=== PATIENT | male | born 1965 | race Caucasian/White ===

== ENCOUNTER 2017-04-07 11:41 | Inpatient (IN) | payer MEDICAID ==
[~2017-04-07] VITALS: Ht 167.6 cm; Wt 71.2 kg
[2017-04-07 11:41] VITALS: BP_SYST 139
[2017-04-07] MEDS ORDERED: DIPHENHYDRAMINE INJ 50 MG/ML VIAL IVP ONE (12:15)
[2017-04-07] MEDS ORDERED: ASPIRIN 81 MG TAB.CHEW PO ONE (12:15)
[2017-04-07] MEDS ORDERED: ONDANSETRON HCL 4 MG/2 ML VIAL IVP ONE (12:15)
[2017-04-07 12:47] LABS: BASOPHILS # (AUTO) 0.1 K/uL (0.0-0.2); BASOPHILS % (AUTO) 0.9 % (0.0-2.0); EOSINOPHILS # (AUTO) 0.2 K/uL (0.0-0.4); EOSINOPHILS % (AUTO) 2.5 % (0.0-4.0); HEMATOCRIT 46.3 % (36-54); LYMPHOCYTES # (AUTO) 2.3 K/uL (1.0-5.5); LYMPHOCYTES % (AUTO) 25.3 % (20.5-51.5); MEAN CORPUSCULAR HEMOGLOBIN 27 pg (27-31); MEAN CORPUSCULAR HGB CONC 32 % (32-36); MEAN CORPUSCULAR VOLUME 85 fL (79.0-98.0); MONOCYTES # (AUTO) 0.8 K/uL (0.0-1.0); MONOCYTES % (AUTO) 8.4 % (1.7-9.3); NEUTROPHILS # (AUTO) 5.7 K/uL (1.8-7.7); NEUTROPHILS % (AUTO) 62.9 % (40.0-70.0); PLATELET COUNT (AUTO) 344 K/uL (130-430); RED BLOOD CELL COUNT(AUTO) 5.46 MIL/uL (4.2-6.2); WHITE BLOOD COUNT (AUTO) 9.1 K/uL (4.8-10.8)
[2017-04-07 13:08] LABS: PROTHROMBIN TIME 10.5 SECS (9.5-12.5)
[2017-04-07 13:22] LABS: CHLORIDE 104 mmol/L (98-107); POTASSIUM 4.3 mmol/L (3.5-5.1); SODIUM SERUM 139 mmol/L (136-145)
[2017-04-07 13:23] LABS: ANION GAP 7 (5-15); CALCIUM 8.9 mg/dL (8.4-11.0); CREATININE 0.97 mg/dL (0.55-1.30); GFR AFRICAN AMERICAN 105 mL/min (>90); GLUCOSE 128 mg/dL (70-99); UREA NITROGEN, BLOOD 15 mg/dL (8-21)
[2017-04-07 13:26] LABS: ALANINE AMINOTRANSFERASE 25 U/L (12-78); ASPARTATE AMINOTRANSFERASE 24 U/L (10-37); TOTAL BILIRUBIN 0.8 mg/dL (0.0-1.0)
[2017-04-07 13:27] LABS: ALBUMIN 3.7 g/dL (3.4-4.8)
[2017-04-07 13:31] LABS: ALCOHOL, BLOOD < 3 mg/dL (<10)
[2017-04-07 14:55] VITALS: BP_SYST 139
[2017-04-07] MEDS ORDERED: SIMETHICONE 80 MG TAB.CHEW PO PRN (15:15)
[2017-04-07] MEDS ORDERED: LORazepam 2 MG/ML VIAL IVP PRN (15:15)
[2017-04-07] MEDS ORDERED: HYDROcodone/ACETAMIN 10-325 MG TAB PO PRN (15:15)
[2017-04-07] MEDS ORDERED: MORPHINE 2 MG/ML INJ. SYRINGE IVP PRN (15:15)
[2017-04-07] MEDS ORDERED: POTASSIUM CHLORIDE 20 MEQ TAB.PRT.SR PO PRN (15:15)
[2017-04-07] MEDS ORDERED: ONDANSETRON HCL 4 MG/2 ML VIAL IVP PRN (15:15)
[2017-04-07] MEDS ORDERED: ZOLPIDEM TARTRATE 5 MG TABLET PO PRN (15:15)
[2017-04-07] MEDS ORDERED: BISACODYL 10 MG/SUPPOSITORY RC PRN (16:00)
[2017-04-07 16:18] LABS: BASOPHILS # (AUTO) 0.1 K/uL (0.0-0.2); EOSINOPHILS # (AUTO) 0.2 K/uL (0.0-0.4); EOSINOPHILS % (AUTO) 2.3 % (0.0-4.0); HEMATOCRIT 46.1 % (36-54); HEMOGLOBIN 14.9 g/dL (14.0-18.0); LYMPHOCYTES % (AUTO) 23.4 % (20.5-51.5); MEAN CORPUSCULAR HEMOGLOBIN 28 pg (27-31); MEAN CORPUSCULAR HGB CONC 32 % (32-36); MEAN CORPUSCULAR VOLUME 85 fL (79.0-98.0); MONOCYTES # (AUTO) 0.7 K/uL (0.0-1.0); MONOCYTES % (AUTO) 8.3 % (1.7-9.3); NEUTROPHILS # (AUTO) 5.4 K/uL (1.8-7.7); PLATELET COUNT (AUTO) 364 K/uL (130-430); RED CELL DISTRIBUTION WIDTH 12.3 % (9.0-15.0); WHITE BLOOD COUNT (AUTO) 8.4 K/uL (4.8-10.8)
[2017-04-07 16:46] LABS: ALBUMIN 3.7 g/dL (3.4-4.8); CALCIUM 9.3 mg/dL (8.4-11.0); CREATININE 0.9 mg/dL (0.55-1.30); FREE T4 (FREE THYROXINE) 0.6 ng/dL (0.6-1.6); PHOSPHORUS 4.1 mg/dL (2.7-4.5); POTASSIUM 4.5 mmol/L (3.5-5.1); THYROID STIMULATING HORMONE 1.5 uIu/mL (0.34-4.82); TOTAL BILIRUBIN 0.7 mg/dL (0.0-1.0)
[2017-04-07] MEDS ORDERED: ASPI-1063 PO (17:29)
[2017-04-07] MEDS ORDERED: HYDR25TA4 PO (17:33)
[2017-04-07] MEDS ORDERED: SULF1TAB3 PO (17:33)
[2017-04-07] MEDS ORDERED: ENAL10TA PO (17:33)
[2017-04-07] MEDS: NACL 0.9% 1,000 ML IV SCH (18:01)
[2017-04-07] MEDS: ACETAMINOPHEN 325 MG TABLET PO PRN (18:09)
[2017-04-07 19:15] VITALS: BP_SYST 141
[2017-04-07] MEDS: SIMVASTATIN 20 MG TABLET PO SCH (21:20)
[2017-04-07] MEDS: METOPROLOL TARTRATE 25 MG TABLET PO SCH (21:22)
[2017-04-07] MEDS: DOCUSATE SODIUM 100 MG CAPSULE PO SCH (21:23)
[2017-04-08 00:57] VITALS: BP_SYST 107
[2017-04-08 04:17] LABS: BASOPHILS % (AUTO) 1.5 % (0.0-2.0); EOSINOPHILS # (AUTO) 0.3 K/uL (0.0-0.4); EOSINOPHILS % (AUTO) 4.1 % (0.0-4.0); HEMATOCRIT 45.2 % (36-54); HEMOGLOBIN 14.6 g/dL (14.0-18.0); LYMPHOCYTES # (AUTO) 2.5 K/uL (1.0-5.5); LYMPHOCYTES % (AUTO) 34.8 % (20.5-51.5); MEAN CORPUSCULAR HEMOGLOBIN 27 pg (27-31); MEAN CORPUSCULAR HGB CONC 32 % (32-36); MEAN CORPUSCULAR VOLUME 84 fL (79.0-98.0); MONOCYTES # (AUTO) 0.7 K/uL (0.0-1.0); MONOCYTES % (AUTO) 10.5 % (1.7-9.3); NEUTROPHILS # (AUTO) 3.5 K/uL (1.8-7.7); NEUTROPHILS % (AUTO) 49.1 % (40.0-70.0); PLATELET COUNT (AUTO) 334 K/uL (130-430); RED BLOOD CELL COUNT(AUTO) 5.35 MIL/uL (4.2-6.2); RED CELL DISTRIBUTION WIDTH 12.4 % (9.0-15.0); WHITE BLOOD COUNT (AUTO) 7.1 K/uL (4.8-10.8)
[2017-04-08 04:18] LABS: BASOPHILS # (AUTO) 0.1 K/uL (0.0-0.2)
[2017-04-08 04:29] LABS: CALCIUM 8.7 mg/dL (8.4-11.0); CREATININE 0.92 mg/dL (0.55-1.30); PHOSPHORUS 4.5 mg/dL (2.7-4.5); POTASSIUM 4.2 mmol/L (3.5-5.1)
[2017-04-08 08:04] VITALS: BP_SYST 145
[2017-04-08 08:29] LABS: T4 (THYROXINE) 8.5 ug/dL (4.5-12.0)
[2017-04-08] MEDS: ASPIRIN 81 MG TAB.CHEW PO SCH (08:39)
[2017-04-08] MEDS: DOCUSATE SODIUM 100 MG CAPSULE PO SCH ×2 (08:39→21:01)
[2017-04-08] MEDS: METOPROLOL TARTRATE 25 MG TABLET PO SCH ×2 (08:41→21:01)
[2017-04-08] MEDS: LISINOPRIL 10 MG TABLET (PRINIVIL) PO SCH (08:43)
[2017-04-08] MEDS: NACL 0.9% 1,000 ML IV SCH (08:49)
[2017-04-08 12:00] VITALS: BP_SYST 125
[2017-04-08] MEDS: ACETAMINOPHEN 325 MG TABLET PO PRN (15:37)
[2017-04-08 16:00] VITALS: BP_SYST 120
[2017-04-08 19:50] VITALS: BP_SYST 153
[2017-04-08 20:00] VITALS: BP_SYST 153
[2017-04-08] MEDS: SIMVASTATIN 20 MG TABLET PO SCH (21:01)
[2017-04-09] MEDS: NACL 0.9% 1,000 ML IV SCH (01:06)
[2017-04-09 01:15] VITALS: BP_SYST 134
[2017-04-09 06:50] LABS: BASOPHILS # (AUTO) 0.1 K/uL (0.0-0.2); BASOPHILS % (AUTO) 1.3 % (0.0-2.0); EOSINOPHILS # (AUTO) 0.3 K/uL (0.0-0.4); EOSINOPHILS % (AUTO) 3.8 % (0.0-4.0); HEMATOCRIT 41.4 % (36-54); HEMOGLOBIN 13.9 g/dL (14.0-18.0); LYMPHOCYTES # (AUTO) 2.5 K/uL (1.0-5.5); LYMPHOCYTES % (AUTO) 32.8 % (20.5-51.5); MEAN CORPUSCULAR HEMOGLOBIN 29 pg (27-31); MEAN CORPUSCULAR HGB CONC 34 % (32-36); MEAN CORPUSCULAR VOLUME 85 fL (79.0-98.0); MONOCYTES # (AUTO) 0.7 K/uL (0.0-1.0); MONOCYTES % (AUTO) 9.3 % (1.7-9.3); NEUTROPHILS # (AUTO) 4.1 K/uL (1.8-7.7); NEUTROPHILS % (AUTO) 52.8 % (40.0-70.0); PLATELET COUNT (AUTO) 294 K/uL (130-430); RED BLOOD CELL COUNT(AUTO) 4.87 MIL/uL (4.2-6.2); WHITE BLOOD COUNT (AUTO) 7.7 K/uL (4.8-10.8)
[2017-04-09 07:02] LABS: CALCIUM 8.6 mg/dL (8.4-11.0); CREATININE 0.95 mg/dL (0.55-1.30); PHOSPHORUS 3.5 mg/dL (2.7-4.5)
[2017-04-09 07:50] VITALS: BP_SYST 141
[2017-04-09] MEDS: LISINOPRIL 10 MG TABLET (PRINIVIL) PO SCH (08:16)
[2017-04-09] MEDS: DOCUSATE SODIUM 100 MG CAPSULE PO SCH (08:17)
[2017-04-09] MEDS: ASPIRIN 81 MG TAB.CHEW PO SCH (08:17)
[2017-04-09] MEDS: METOPROLOL TARTRATE 25 MG TABLET PO SCH (08:18)
[2017-04-09] MEDS ORDERED: LORazepam 2 MG/ML VIAL IVP PRN (11:15)
[2017-04-09 12:00] VITALS: BP_SYST 151
[2017-04-09 15:22] VITALS: BP_SYST 157
[2017-04-10 13:47] LABS: HEMOGLOBIN A1C 5.8 % (4.8-5.6)
== END 2017-04-09 15:37 | disposition home or self-care (01) | DRG 243 ==
LOC: SED 11:41 → STU 14:02
PROVIDERS: ADMIT Family Medicine; ATTEND Family Medicine
DX: K21.9 Gastro-esophageal reflux disease without esophagitis (principal); E83.42 Hypomagnesemia; I10 Essential (primary) hypertension; F15.10 Other stimulant abuse, uncomplicated; F17.200 Nicotine dependence, unspecified, uncomplicated; F12.90 Cannabis use, unspecified, uncomplicated; Z91.14 Patient's other noncompliance with medication regimen; M94.0 Chondrocostal junction syndrome [Tietze]
CPT/HCPCS: 36415; 71010; 80048; 80053; 80061; 82150-TC; 83036; 83690-TC; 83735-TC; 83880; 84100-TC; 84436; 84439; 84443-TC; 84479; 84484; 85025; 85610-TC; 85730-TC; 93005; 93306; 96374; 96375; 99285; G0482; J1200; J2405; J7030

== ENCOUNTER 2017-07-03 12:59 | Emergency (ER) | payer MEDICAID ==
[~2017-07-03] VITALS: Ht 167.6 cm; Wt 73.5 kg
[~2017-07-03 12:59] MED LIST: ASPI-1063 PO; ENAL10TA PO; HYDR25TA4 PO; SULF1TAB3 PO
[2017-07-03 13:10] VITALS: BP_SYST 150
== END 2017-07-03 15:27 | disposition left against medical advice (07) ==
LOC: SED 12:59
DX: M54.5 Low back pain (principal); Z53.21 Procedure and treatment not carried out due to patient leaving prior to being seen by health care provider

== ENCOUNTER 2017-07-29 20:49 | Emergency (ER) | payer MEDICAID ==
[~2017-07-29] VITALS: Ht 175.3 cm; Wt 72.6 kg
[2017-07-29 20:55] VITALS: BP_SYST 176
[2017-07-29] MEDS ORDERED: hydrALAZINE HCL 20 MG/ML VIAL IM ONE (22:30)
[2017-07-29] MEDS ORDERED: KETOROLAC TROMETHAMINE 30 MG VIAL IM ONE (22:30)
[2017-07-29 23:09] VITALS: BP_SYST 148
== END 2017-07-29 23:09 | disposition home or self-care (01) ==
LOC: SED 20:49
DX: I10 Essential (primary) hypertension (principal); H66.92 Otitis media, unspecified, left ear; Z86.79 Personal history of other diseases of the circulatory system; Z86.19 Personal history of other infectious and parasitic diseases; Z79.82 Long term (current) use of aspirin
CPT/HCPCS: 70450; 96372; 99284; J0360; J1885; J7030

== ENCOUNTER 2017-07-30 09:26 | Emergency (ER) | payer MEDICAID ==
[~2017-07-30] VITALS: Ht 167.6 cm; Wt 73.5 kg
[2017-07-30 09:39] VITALS: BP_SYST 152
[2017-07-30] MEDS ORDERED: ONDANSETRON HCL 4 MG/2 ML VIAL IVP ONE (10:00)
[2017-07-30] MEDS ORDERED: NACL 0.9% 1,000 ML IV ONE ×2 (10:00→12:45)
[2017-07-30] MEDS ORDERED: KETOROLAC TROMETHAMINE 30 MG VIAL IVP ONE (10:00)
[2017-07-30 10:22] LABS: HEMATOCRIT 51.5 % (36-54)
[2017-07-30 10:29] LABS: HEMOGLOBIN 16.9 g/dL (14.0-18.0); MEAN CORPUSCULAR HEMOGLOBIN 28 pg (27-31); MEAN CORPUSCULAR HGB CONC 33 % (32-36); MEAN CORPUSCULAR VOLUME 85 fL (79.0-98.0); PLATELET COUNT (AUTO) 345 K/uL (130-430); RED BLOOD CELL COUNT(AUTO) 6.06 MIL/uL (4.2-6.2); RED CELL DISTRIBUTION WIDTH 12.5 % (9.0-15.0); WHITE BLOOD COUNT (AUTO) 8.2 K/uL (4.8-10.8)
[2017-07-30 10:32] LABS: CALCIUM 9.6 mg/dL (8.4-11.0); CREATININE 1.03 mg/dL (0.55-1.30); POTASSIUM 3.9 mmol/L (3.5-5.1)
[2017-07-30 10:35] LABS: PROTHROMBIN TIME 10.4 SECS (9.5-12.5)
[2017-07-30 10:37] LABS: ALBUMIN 4.1 g/dL (3.4-4.8); TOTAL BILIRUBIN 0.8 mg/dL (0.0-1.0)
[2017-07-30] MEDS ORDERED: MECLIZINE HCL 25 MG TABLET (ANITVERT) PO ONE (11:15)
[2017-07-30 11:53] LABS: BASOPHILS % (MANUAL) 0 % (0-2); EOSINOPHILS % (MANUAL) 3 % (0-7); LYMPHOCYTES % (MANUAL) 19 % (20-46); MONOCYTES % (MANUAL) 8 % (0-11)
[2017-07-30 12:35] LABS: BILIRUBIN,URINE 1+ (NEGATIVE); BLOOD, URINE NEGATIVE (NEGATIVE); CLARITY/URINE HAZY (CLEAR); COLOR,URINE YELLOW (YELLOW); GLUCOSE,URINE NEGATIVE (NEGATIVE); KETONES,URINE NEGATIVE (NEGATIVE); LEUKOCYTE ESTERASE ,URINE TRACE (NEGATIVE); NITRITE, URINE NEGATIVE (NEGATIVE); PROTEIN URINE TRACE (NEGATIVE)
[2017-07-30 12:43] LABS: BACTERIA,URINE FEW /HPF (None Seen); MUCUS,URINE 1+ /LPF (None Seen); RBC,URINE 0-3 /HPF (0-3)
[2017-07-30 12:45] LABS: BARBITURATE, URINE NEGATIVE (NEG <=200); BENZODIAZEPINE, URINE NEGATIVE (NEG <=150); METHAMPHETAMINES SCREEN,URINE POSITIVE (NEG <=500); URINE AMPHETAMINE POSITIVE (NEG <=500); URINE METHADONE NEGATIVE (NEG <=200)
[2017-07-30 12:46] LABS: CANNABINOID, URINE POSITIVE (NEG <=50); COCAINE, URINE NEGATIVE (NEG <=150); OPIATE, URINE POSITIVE (NEG <=100); PHENCYCLIDINE SCREEN,URINE NEGATIVE (NEG <=25); UR TRICYCLIC ANTIDEPRESSANTS NEGATIVE (NEG <=300); URINE OXYCODONE SCREEN NEGATIVE (NEG <=100); URINE PROPOXYPHENE SCREEN NEGATIVE (NEG <=300)
[2017-07-30 12:59] VITALS: BP_SYST 133
== END 2017-07-30 12:59 | disposition home or self-care (01) ==
LOC: SED 09:26
DX: F41.9 Anxiety disorder, unspecified (principal); R42 Dizziness and giddiness; F19.10 Other psychoactive substance abuse, uncomplicated; I25.2 Old myocardial infarction; I10 Essential (primary) hypertension; Z86.19 Personal history of other infectious and parasitic diseases; Z79.82 Long term (current) use of aspirin; Z79.899 Other long term (current) drug therapy; Z88.6 Allergy status to analgesic agent
CPT/HCPCS: 36415; 71045; 80053; 80307; 81000; 82150; 82550; 83690; 85007; 85027; 85610; 85730; 87086; 93005; 96361; 96374; 96375; 99285; J1885; J2405; J7030; J8597

== ENCOUNTER 2018-10-06 07:32 | Emergency (ER) | payer MEDICAID ==
[~2018-10-06] VITALS: Ht 167.6 cm; Wt 72.1 kg
[~2018-10-06 07:32] MED LIST changes: -ASPI-1063 PO; +ASPI-1153 PO
[2018-10-06 07:37] VITALS: BP_SYST 165; BP_SYST 182
[2018-10-06] MEDS ORDERED: IBUPROFEN 800 MG TABLET PO ONE (08:30)
[2018-10-06] MEDS ORDERED: LIDOCAINE 4% TOPICAL 50 ML BOTTLE MM ONE (08:30)
[2018-10-06] MEDS ORDERED: cloNIDine HCL 0.1 MG TABLET PO ONE (08:30)
[2018-10-06 09:28] VITALS: BP_SYST 160
== END 2018-10-06 09:27 | disposition home or self-care (01) ==
LOC: SED 07:32
DX: H61.21 Impacted cerumen, right ear (principal); I25.2 Old myocardial infarction; I10 Essential (primary) hypertension; Z88.6 Allergy status to analgesic agent; Z79.82 Long term (current) use of aspirin; Z79.899 Other long term (current) drug therapy
CPT/HCPCS: 99283

== ENCOUNTER 2018-10-16 10:06 | Emergency (ER) | payer MEDICAID ==
[~2018-10-16] VITALS: Ht 167.6 cm; Wt 73.5 kg
[2018-10-16 10:10] VITALS: BP_SYST 157
--- NOTE | 2018-10-16 10:10 | NUR ---
BROUGHT BACK TO BED #3 AND TRIAGED. REPORT GIVEN TO BEHZAD
--- NOTE | 2018-10-16 10:15 | NUR ---
PT STATES THAT WHILE AT WORK LAST NIGHT, LEFT HAND BECAME RED AND SWOLLEN, NUMBNESS AND PAIN INVOLVING WHOLE LEFT ARM. DENIES ANY TRAUMA OR INJURY. 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
--- NOTE | 2018-10-16 11:08 | NUR ---
DR BRASHER AT BEDSIDE FOR EVALUATION
[2018-10-16 11:53] LABS: BASOPHILS # (AUTO) 0.1 K/uL (0.0-0.2); BASOPHILS % (AUTO) 1.2 % (0.0-2.0); EOSINOPHILS # (AUTO) 0.3 K/uL (0.0-0.4); EOSINOPHILS % (AUTO) 3.5 % (0.0-4.0); HEMOGLOBIN 14.9 g/dL (14.0-18.0); LYMPHOCYTES # (AUTO) 2.2 K/uL (1.0-5.5); LYMPHOCYTES % (AUTO) 22.8 % (20.5-51.5); MEAN CORPUSCULAR HEMOGLOBIN 28 pg (27-31); MEAN CORPUSCULAR HGB CONC 33 % (32-36); MEAN CORPUSCULAR VOLUME 84 fL (79.0-98.0); MONOCYTES # (AUTO) 0.9 K/uL (0.0-1.0); MONOCYTES % (AUTO) 9.5 % (1.7-9.3); NEUTROPHILS # (AUTO) 6.1 K/uL (1.8-7.7); PLATELET COUNT (AUTO) 355 K/uL (130-430); RED BLOOD CELL COUNT(AUTO) 5.34 MIL/uL (4.2-6.2); RED CELL DISTRIBUTION WIDTH 13.3 % (9.0-15.0); WHITE BLOOD COUNT (AUTO) 9.7 K/uL (4.8-10.8)
[2018-10-16 11:58] LABS: CALCIUM 8.7 mg/dL (8.4-11.0); CREATININE 0.97 mg/dL (0.55-1.30); POTASSIUM 3.6 mmol/L (3.5-5.1)
[2018-10-16 12:03] LABS: ALBUMIN 3.4 g/dL (3.4-4.8); TOTAL BILIRUBIN 0.4 mg/dL (0.0-1.0)
[2018-10-16 12:43] LABS: C-REACTIVE PROTEIN QUANT 1.2 mg/dL (0-0.5)
[2018-10-16] MEDS ORDERED: CLINDAMYCIN HCL 150 MG CAPSULE PO ONE (13:45)
--- NOTE | 2018-10-16 13:49 | NUR ---
Patient given written and verbal discharge instructions and verbalizes understanding. ER MD discussed with patient the results and treatment provided. Patient in stable condition. ID arm band removed. Rx of CLINDAMCIN given. Patient educated on pain management and to follow up with PMD. Pain Scale 0/10. Opportunity for questions provided and answered. Medication side effect fact sheet provided.
[2018-10-16 13:50] VITALS: BP_SYST 152
== END 2018-10-16 13:49 | disposition home or self-care (01) ==
LOC: SED 10:06
DX: L03.114 Cellulitis of left upper limb (principal); I25.2 Old myocardial infarction; I10 Essential (primary) hypertension; N40.0 Benign prostatic hyperplasia without lower urinary tract symptoms; Z86.19 Personal history of other infectious and parasitic diseases; Z88.6 Allergy status to analgesic agent; Z79.82 Long term (current) use of aspirin; Z79.899 Other long term (current) drug therapy
CPT/HCPCS: 36415; 80053; 85025; 86140; 99284

== ENCOUNTER 2018-10-30 13:48 | Emergency (ER) | payer MEDICAID ==
[~2018-10-30] VITALS: Ht 167.6 cm; Wt 73.5 kg
[2018-10-30 13:53] VITALS: BP_SYST 160
[2018-10-30 14:40] VITALS: BP_SYST 158
== END 2018-10-30 14:40 | disposition home or self-care (01) ==
LOC: SED 13:48
DX: S62.632A Displaced fracture of distal phalanx of right middle finger, initial encounter for closed fracture (principal); I10 Essential (primary) hypertension; I25.2 Old myocardial infarction; N40.0 Benign prostatic hyperplasia without lower urinary tract symptoms; Z86.19 Personal history of other infectious and parasitic diseases; Z79.82 Long term (current) use of aspirin; Z79.899 Other long term (current) drug therapy; Z88.6 Allergy status to analgesic agent; X58.XXXA Exposure to other specified factors, initial encounter; Y93.89 Activity, other specified; Y92.69 Other specified industrial and construction area as the place of occurrence of the external cause; Y99.8 Other external cause status
CPT/HCPCS: 99283

== ENCOUNTER 2019-03-08 09:51 | Emergency (ER) | payer MEDICAID ==
[~2019-03-08] VITALS: Ht 167.6 cm; Wt 76.7 kg
[2019-03-08 09:51] VITALS: BP_SYST 116
[2019-03-08] MEDS ORDERED: BACITRACIN 1 GM OINT TP ONE (10:30)
[2019-03-08] MEDS ORDERED: IBUPROFEN 800 MG TABLET PO ONE (10:30)
[2019-03-08] MEDS ORDERED: AMOXICILLIN/CLAVULANATE POTASSIUM 875 MG TABLET PO ONE (10:30)
[2019-03-08 10:50] VITALS: BP_SYST 116
== END 2019-03-08 10:54 | disposition home or self-care (01) ==
LOC: SED 09:51
DX: L03.032 Cellulitis of left toe (principal); I10 Essential (primary) hypertension; I25.2 Old myocardial infarction; Z88.5 Allergy status to narcotic agent; Z79.899 Other long term (current) drug therapy; Z79.82 Long term (current) use of aspirin
CPT/HCPCS: 99284

== ENCOUNTER 2019-04-10 04:25 | Emergency (ER) | payer MEDICAID ==
[~2019-04-10] VITALS: Ht 167.6 cm; Wt 73.5 kg
[2019-04-10 04:30] VITALS: BP_SYST 163
--- NOTE | 2019-04-10 04:30 | NUR ---
Patient triaged and placed in waiting room. VSS and patient appears in no acute distress at this time. Accompanied by SELF, awaiting available bed, and MD notified of need for MSE.
--- NOTE | 2019-04-10 06:20 | NUR ---
CALL PT IN THE WR.NO ANSWER.
--- NOTE | 2019-04-10 06:25 | NUR ---
CALL PT IN THE WR.NO ANSWER.
--- NOTE | 2019-04-10 06:30 | NUR ---
CALL PT IN THE WR.NO ANSWER.
== END 2019-04-10 06:30 | disposition left against medical advice (07) ==
LOC: SED 04:25
DX: M25.562 Pain in left knee (principal); Z53.21 Procedure and treatment not carried out due to patient leaving prior to being seen by health care provider

== ENCOUNTER 2019-09-09 14:00 | Emergency (ER) | payer MEDICAID ==
[~2019-09-09] VITALS: Ht 165.1 cm; Wt 72.6 kg
--- NOTE | 2019-09-09 14:04 | NUR ---
Placed in room 7. Placed on patient monitor, blood pressure machine and pulse oximeter. To gown for exam. Side rails up.
--- NOTE | 2019-09-09 14:05 | NUR ---
Patient is awake, alert, and oriented x4. He is complaining of headache, nausea, vomiting, and diarrhea since 0400 today. 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 Patient is diaphoretic, track haider noted on left arm.
[2019-09-09 14:06] VITALS: BP_SYST 184
--- NOTE | 2019-09-09 14:25 | NUR ---
ER Dr. Haas at bedside examining patient.
[2019-09-09] MEDS ORDERED: NACL 0.9% 1,000 ML IV ONE (14:30)
[2019-09-09 14:47] LABS: BASOPHILS # (AUTO) 0.1 K/uL (0.0-0.2); EOSINOPHILS # (AUTO) 0.1 K/uL (0.0-0.4); EOSINOPHILS % (AUTO) 0.8 % (0.0-4.0); HEMATOCRIT 48.9 % (36-54); HEMOGLOBIN 16.1 g/dL (14.0-18.0); LYMPHOCYTES # (AUTO) 1.9 K/uL (1.0-5.5); LYMPHOCYTES % (AUTO) 14.2 % (20.5-51.5); MEAN CORPUSCULAR HEMOGLOBIN 28 pg (27-31); MEAN CORPUSCULAR HGB CONC 33 % (32-36); MEAN CORPUSCULAR VOLUME 85 fL (79.0-98.0); MONOCYTES # (AUTO) 0.9 K/uL (0.0-1.0); MONOCYTES % (AUTO) 6.4 % (1.7-9.3); NEUTROPHILS # (AUTO) 10.4 K/uL (1.8-7.7); NEUTROPHILS % (AUTO) 77.6 % (40.0-70.0); PLATELET COUNT (AUTO) 310 K/uL (130-430); RED BLOOD CELL COUNT(AUTO) 5.72 MIL/uL (4.2-6.2); WHITE BLOOD COUNT (AUTO) 13.4 K/uL (4.8-10.8)
[2019-09-09 15:05] LABS: ANION GAP 7 (5-15); CALCIUM 8.7 mg/dL (8.4-11.0); CHLORIDE 102 mmol/L (98-107); CREATININE 0.99 mg/dL (0.55-1.30); GLUCOSE 107 mg/dL (70-99); POTASSIUM 4.1 mmol/L (3.5-5.1); SODIUM SERUM 134 mmol/L (136-145); UREA NITROGEN, BLOOD 11 mg/dL (8-21)
[2019-09-09 15:09] LABS: GFR AFRICAN AMERICAN 102 mL/min (>90)
[2019-09-09 15:21] LABS: ALANINE AMINOTRANSFERASE 25 U/L (12-78); ALBUMIN 3.8 g/dL (3.4-4.8); ASPARTATE AMINOTRANSFERASE 19 U/L (10-37); FREE T4 (FREE THYROXINE) 0.8 ng/dL (0.6-1.6); TOTAL BILIRUBIN 1.2 mg/dL (0.0-1.0)
[2019-09-09 15:23] LABS: ALCOHOL, BLOOD < 3 mg/dL (<10)
[2019-09-09] MEDS ORDERED: MECLIZINE HCL 25 MG TABLET (ANITVERT) PO ONE (16:30)
[2019-09-09] MEDS ORDERED: METOCLOPRAMIDE HCL 10 MG/2 ML VIAL IVP ONE (16:30)
[2019-09-09] MEDS ORDERED: KETOROLAC TROMETHAMINE 30 MG VIAL IVP ONE (16:30)
[2019-09-09 16:44] VITALS: BP_SYST 164
--- NOTE | 2019-09-09 16:44 | NUR ---
Patient given written and verbal discharge instructions and verbalizes understanding. ER MD discussed with patient the results and treatment provided. Patient in stable condition. ID arm band removed. IV catheter removed intact and dressing applied, no active bleeding. Rx of antivert and reglan given. Patient educated on pain management and to follow up with PMD. Pain Scale 0/10. Opportunity for questions provided and answered. Medication side effect fact sheet provided.
== END 2019-09-09 16:44 | disposition home or self-care (01) ==
LOC: SED 14:00
DX: R42 Dizziness and giddiness (principal); R11.2 Nausea with vomiting, unspecified; I10 Essential (primary) hypertension; Z88.5 Allergy status to narcotic agent; Z79.82 Long term (current) use of aspirin; Z79.899 Other long term (current) drug therapy
CPT/HCPCS: 36415; 70450; 71045; 80053; 82140; 83605; 83880; 84439; 84484; 85025; 85610; 87040; 93005; 96361; 96374; 96375; 99285; G0482; J1885; J2765; J7030; J8597

== ENCOUNTER 2020-04-07 08:56 | Emergency (ER) | payer MEDICAID ==
[~2020-04-07] VITALS: Ht 167.6 cm; Wt 74.8 kg
[~2020-04-07 08:56] MED LIST changes: -ASPI-1153 PO; +ASPI-1393 PO; -ENAL10TA PO; +ENAL10TA19 PO
[2020-04-07 09:25] VITALS: BP_SYST 169
--- NOTE | 2020-04-07 09:25 | NUR ---
TRIAGED AND WILL REMAIN IN TRIAGE ROOM UNTIL OPEN ER BED.
--- NOTE | 2020-04-07 09:50 | NUR ---
DR UNGER OUT TO TRIAGE ROOM TO EVALUATE PT.
[2020-04-07] MEDS: ONDANSETRON 4 MG ODT TAB PO ONE (10:08)
[2020-04-07] MEDS: cloNIDine HCL 0.1 MG TABLET PO ONE (10:08)
--- NOTE | 2020-04-07 11:37 | NUR ---
Patient given written and verbal discharge instructions and verbalizes understanding. ER MD discussed with patient the results and treatment provided. Patient in stable condition. ID arm band removed. Rx of zofran, & tramadol given. Patient educated on pain management and to follow up with PMD. Pain Scale 0/10. Opportunity for questions provided and answered. Medication side effect fact sheet provided.
[2020-04-07 11:38] VITALS: BP_SYST 156
== END 2020-04-07 11:37 | disposition home or self-care (01) ==
LOC: SED 08:56
DX: I16.0 Hypertensive urgency (principal); I10 Essential (primary) hypertension; N40.0 Benign prostatic hyperplasia without lower urinary tract symptoms; Z79.899 Other long term (current) drug therapy; Z86.73 Personal history of transient ischemic attack (TIA), and cerebral infarction without residual deficits; Z79.82 Long term (current) use of aspirin; Z88.6 Allergy status to analgesic agent
CPT/HCPCS: 99285; Q0162

== ENCOUNTER 2020-06-02 13:03 | Emergency (ER) | payer MEDICAID ==
[~2020-06-02] VITALS: Ht 167.6 cm; Wt 76.7 kg
[2020-06-02 13:25] VITALS: BP_SYST 165
[2020-06-02] MEDS: IBUPROFEN 600 MG TABLET PO ONE (14:15)
[2020-06-02] MEDS ORDERED: NAPR-688 PO (14:31)
[2020-06-02] MEDS ORDERED: TRAM50TA2 PO (14:31)
[2020-06-02 14:45] VITALS: BP_SYST 148
== END 2020-06-02 14:45 | disposition home or self-care (01) ==
LOC: SED 13:03
DX: S83.8X2A Sprain of other specified parts of left knee, initial encounter (principal); I10 Essential (primary) hypertension; N40.0 Benign prostatic hyperplasia without lower urinary tract symptoms; I25.2 Old myocardial infarction; Z79.899 Other long term (current) drug therapy; Z79.82 Long term (current) use of aspirin; Z88.6 Allergy status to analgesic agent; W01.0XXA Fall on same level from slipping, tripping and stumbling without subsequent striking against object, initial encounter; Y93.89 Activity, other specified; Y92.89 Other specified places as the place of occurrence of the external cause; Y99.8 Other external cause status
CPT/HCPCS: 73560-TC; 99283

== ENCOUNTER 2021-03-07 18:42 | Emergency (ER) | payer MEDICAID, SELFPAY ==
[~2021-03-07] VITALS: Ht 167.6 cm; Wt 77.6 kg
[~2021-03-07 18:42] MED LIST changes: +NAPR-688 PO; +TRAM50TA2 PO
[2021-03-07 19:07] VITALS: BP_SYST 141
--- NOTE | 2021-03-07 19:18 | NUR ---
SENT TO [facility]
--- NOTE | 2021-03-08 | NUR ---
PT ELOPED AT THIS TIME. CALLED BUT NO ANSWER X3. PT STABLE WHEN SEEN LAST.
== END 2021-03-08 | disposition left against medical advice (07) ==
LOC: SED 18:42
DX: S59.902A Unspecified injury of left elbow, initial encounter (principal); X58.XXXA Exposure to other specified factors, initial encounter; Y93.89 Activity, other specified; Y92.89 Other specified places as the place of occurrence of the external cause; Y99.8 Other external cause status
CPT/HCPCS: 99281

== ENCOUNTER 2021-04-26 08:51 | Emergency (ER) | payer MEDICAID, SELFPAY ==
[~2021-04-26] VITALS: Ht 167.6 cm; Wt 79.8 kg
--- NOTE | 2021-04-26 08:55 | NUR ---
Placed in room 7 . Placed on security monitor, blood pressure machine and pulse oximeter. To gown for exam. Side rails up. Report given to LALITA Zavala.
--- NOTE | 2021-04-26 09:00 | NUR ---
PT CAME IN FROM HOME C/O LEFT SIDED CHEST PAIN STARTING LAST NIGHT. REPORTS SHARP, NON-RADIATING PAIN 7/10 UPON ARRIVAL. PT REPORTS HX OF HTN, CHF, Hep C, Vertigo, Cysts. PT IS AMBULATORY, AAOX4, HYPERTENSIVE UPON ARRIVAL 166/95, OTHER V/S STABLE.
[2021-04-26 09:06] VITALS: BP_SYST 188
--- NOTE | 2021-04-26 09:19 | NUR ---
# 20 gauge angiocath placed to L WRIST. Use of asceptic technique. Opsite placed over site. Blood return noted. Blood for lab drawn from site. Flushed with 10 cc of normal saline. No evidence of infiltration noted. Patient tolerated well.
--- NOTE | 2021-04-26 09:20 | NUR ---
ER DR. MIRAMONTES AT THE BEDSIDE EXAMINING PT
[2021-04-26 09:35] LABS: BASOPHILS # (AUTO) 0.1 K/uL (0.0-0.2); BASOPHILS % (AUTO) 0.6 % (0.0-2.0); EOSINOPHILS # (AUTO) 0.1 K/uL (0.0-0.4); EOSINOPHILS % (AUTO) 1.5 % (0.0-4.0); HEMATOCRIT 41.9 % (36-54); HEMOGLOBIN 14.3 g/dL (14.0-18.0); LYMPHOCYTES # (AUTO) 1.8 K/uL (1.0-5.5); LYMPHOCYTES % (AUTO) 18.5 % (20.5-51.5); MEAN CORPUSCULAR HEMOGLOBIN 28 pg (27-31); MEAN CORPUSCULAR HGB CONC 34 % (32-36); MEAN CORPUSCULAR VOLUME 83 fL (79.0-98.0); NEUTROPHILS # (AUTO) 6.6 K/uL (1.8-7.7); NEUTROPHILS % (AUTO) 69.4 % (40.0-70.0); PLATELET COUNT (AUTO) 284 K/uL (130-430); RED BLOOD CELL COUNT(AUTO) 5.08 MIL/uL (4.2-6.2); RED CELL DISTRIBUTION WIDTH 13.1 % (9.0-15.0); WHITE BLOOD COUNT (AUTO) 9.6 K/uL (4.8-10.8)
[2021-04-26 10:17] LABS: CALCIUM 8.5 mg/dL (8.4-11.0); CREATININE 0.86 mg/dL (0.55-1.30); POTASSIUM 3.7 mmol/L (3.5-5.1)
[2021-04-26 10:25] LABS: ALBUMIN 3.5 g/dL (3.4-4.8); TOTAL BILIRUBIN 0.6 mg/dL (0.0-1.0)
[2021-04-26 10:36] LABS: PHOSPHORUS 3.4 mg/dL (2.7-4.5)
--- NOTE | 2021-04-26 11:00 | NUR ---
PT AMBULATES WITH STEADY GAIT TO BATHROOM TO PROVIDE URINE SAMPLE
[2021-04-26 11:07] LABS: BILIRUBIN,URINE NEGATIVE (NEGATIVE); CLARITY/URINE CLEAR (CLEAR); COLOR,URINE YELLOW (YELLOW); GLUCOSE,URINE NEGATIVE (NEGATIVE); KETONES,URINE NEGATIVE (NEGATIVE); LEUKOCYTE ESTERASE ,URINE NEGATIVE (NEGATIVE); NITRITE, URINE NEGATIVE (NEGATIVE); PROTEIN URINE NEGATIVE (NEGATIVE); UROBILINOGEN,URINE 0.2 (0.2-1.0)
[2021-04-26 11:09] LABS: BLOOD, URINE TRACE (NEGATIVE)
[2021-04-26 11:10] LABS: BACTERIA,URINE FEW /HPF (None Seen); WBC,URINE 0-3 /HPF (0-3)
[2021-04-26 13:41] VITALS: BP_SYST 188
== END 2021-04-26 13:41 | disposition home or self-care (01) ==
LOC: SED 08:51
DX: R00.2 Palpitations (principal); I11.0 Hypertensive heart disease with heart failure; I50.9 Heart failure, unspecified; I25.2 Old myocardial infarction
CPT/HCPCS: 36415; 71045; 80053; 81000; 83735; 83880; 84100; 84484; 85025; 93005; 99285

== ENCOUNTER 2021-08-01 13:51 | Emergency (ER) | payer MEDICAID ==
[~2021-08-01] VITALS: Ht 167.6 cm; Wt 79.8 kg
--- NOTE | 2021-08-01 14:05 | NUR ---
Placed in room 7 . Placed on property assessment monitor, blood pressure machine and pulse oximeter. To gown for exam. Side rails up.
--- NOTE | 2021-08-01 14:10 | NUR ---
ER DR. BRASHER EXAMINING PT
[2021-08-01] MEDS ORDERED: DIPHENHYDRAMINE INJ 50 MG/ML VIAL IM ONE (14:15)
[2021-08-01] MEDS ORDERED: METOCLOPRAMIDE HCL 10 MG/2 ML VIAL IM ONE (14:15)
[2021-08-01 14:16] VITALS: BP_SYST 175
[2021-08-01 14:36] LABS: BASOPHILS # (AUTO) 0.1 K/uL (0.0-0.2); BASOPHILS % (AUTO) 1.3 % (0.0-2.0); EOSINOPHILS # (AUTO) 0.2 K/uL (0.0-0.4); EOSINOPHILS % (AUTO) 2.5 % (0.0-4.0); HEMATOCRIT 45.1 % (36-54); HEMOGLOBIN 15.2 g/dL (14.0-18.0); LYMPHOCYTES # (AUTO) 1.8 K/uL (1.0-5.5); LYMPHOCYTES % (AUTO) 26.3 % (20.5-51.5); MEAN CORPUSCULAR HEMOGLOBIN 28 pg (27-31); MEAN CORPUSCULAR HGB CONC 34 % (32-36); MEAN CORPUSCULAR VOLUME 84 fL (79.0-98.0); MONOCYTES # (AUTO) 0.7 K/uL (0.0-1.0); MONOCYTES % (AUTO) 9.8 % (1.7-9.3); NEUTROPHILS % (AUTO) 60.1 % (40.0-70.0); PLATELET COUNT (AUTO) 308 K/uL (130-430); RED CELL DISTRIBUTION WIDTH 14.1 % (9.0-15.0); WHITE BLOOD COUNT (AUTO) 6.7 K/uL (4.8-10.8)
--- NOTE | 2021-08-01 14:39 | NUR ---
Patient transported to radiology via AMBULATION, accompanied by STAFF.
[2021-08-01 14:40] LABS: ANION GAP 5 (5-15); CALCIUM 9.8 mg/dL (8.4-11.0); CHLORIDE 106 mmol/L (98-107); CREATININE 1.15 mg/dL (0.55-1.30); GLUCOSE 145 mg/dL (70-99); SODIUM SERUM 139 mmol/L (136-145); UREA NITROGEN, BLOOD 19 mg/dL (8-21)
[2021-08-01 14:41] LABS: GFR AFRICAN AMERICAN 85 mL/min (>90)
--- NOTE | 2021-08-01 14:45 | NUR ---
PT CAME IN FROM HOME C/O THURMAN X 4 DAYS. STATES HE HAS NOT TAKEN ANYTHING AT HOME FOR IT. STATES PAIN IS LEFT SIDED ON HIS HEAD AND HAS BEEN CONSTANT FOR 4 DAYS. PT IS AAOX4, AMBULATORY, VSS
[2021-08-01 14:48] LABS: ALANINE AMINOTRANSFERASE 20 U/L (12-78); ALBUMIN 3.7 g/dL (3.4-4.8); ASPARTATE AMINOTRANSFERASE 17 U/L (10-37); TOTAL BILIRUBIN 0.2 mg/dL (0.0-1.0)
[2021-08-01] MEDS ORDERED: IBUP-1971 PO (15:42)
--- NOTE | 2021-08-01 15:50 | NUR ---
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
--- NOTE | 2021-08-01 16:43 | NUR ---
Patient given written and verbal discharge instructions and verbalizes understanding. ER MD discussed with patient the results and treatment provided. Patient in stable condition. ID arm band removed. Rx of IBUPROFEN given. Patient educated on pain management and to follow up with PMD. Pain Scale 0/10. Opportunity for questions provided and answered. Medication side effect fact sheet provided.
[2021-08-01 16:48] VITALS: BP_SYST 175
== END 2021-08-01 16:48 | disposition home or self-care (01) ==
LOC: SED 13:51
DX: I16.0 Hypertensive urgency (principal); I25.2 Old myocardial infarction; R51.9 Headache, unspecified; I10 Essential (primary) hypertension; Z79.82 Long term (current) use of aspirin
CPT/HCPCS: 36415; 70450; 71045; 76376; 80053; 83880; 84484; 85025; 93005; 96372; 99285; J1200; J2765

== ENCOUNTER 2022-03-02 08:36 | Inpatient (IN) | payer MEDICAID ==
[~2022-03-02] VITALS: Ht 167.6 cm; Wt 77.1 kg
[~2022-03-02 08:36] MED LIST changes: +IBUP-1971 PO; +PRO40 PO
[2022-03-02 08:37] VITALS: BP_SYST 202
--- NOTE | 2022-03-02 08:37 | NUR ---
BROUGHT BACK TO BED #3 AND TRIAGED. REPORT GIVEN TO PRAVEEN
--- NOTE | 2022-03-02 09:00 | NUR ---
ARTEM Clemons at bedside examining patient.
--- NOTE | 2022-03-02 09:09 | NUR ---
BP IS HIGH 198/135-74. DR. STREETER BEDSIDE AWARE.
[2022-03-02] MEDS ORDERED: PANTOPRAZOLE SODIUM 40 MG/VIAL (PROTONIX) ONE (09:13)
[2022-03-02] MEDS ORDERED: PANTOPRAZOLE SODIUM 80 MG in NS 100 ML IV ONE (09:15)
[2022-03-02] MEDS ORDERED: ONDANSETRON HCL 4 MG/2 ML VIAL IVP ONE (09:15)
[2022-03-02] MEDS ORDERED: LOSARTAN/HYDROCHLOROTHIAZIDE TAB (HYZAAR 50-12.5 MG) PO ONE (09:15)
[2022-03-02] MEDS ORDERED: amLODIPine BESYLATE 10 MG TABLET PO ONE (09:30)
[2022-03-02 09:32] LABS: ANION GAP 8 (5-15); CHLORIDE 106 mmol/L (98-107); CREATININE 0.93 mg/dL (0.55-1.30); GLUCOSE 102 mg/dL (70-99); UREA NITROGEN, BLOOD 18 mg/dL (8-21)
[2022-03-02 09:33] LABS: GFR AFRICAN AMERICAN 108 mL/min (>90)
[2022-03-02 09:41] LABS: ALANINE AMINOTRANSFERASE 25 U/L (12-78); ALBUMIN 3.9 g/dL (3.4-4.8); ASPARTATE AMINOTRANSFERASE 20 U/L (10-37); TOTAL BILIRUBIN 0.8 mg/dL (0.0-1.0)
[2022-03-02] MEDS ORDERED: NACL 0.9% 1,000 ML IV ONE (10:00)
[2022-03-02] MEDS ORDERED: ACETAMINOPHEN 500 MG TABLET PO ONE (11:00)
--- NOTE | 2022-03-02 11:01 | NUR ---
CO THURMAN 01/24. REFUSED TO GO CT. DR. MERAZ AWARE, TYLENOL ORDERED AND GIVEN. PT WANT TO TORADOL, CO TORADOL WORKS FOR HIM. DR. MERAZ NOTIFIED.
--- NOTE | 2022-03-02 12:44 | NUR ---
NOTIFIED ED ADMITTING, [facility], REGARDING DR. WEBER'S REQUEST FOR ADMISSION/TRANSFER. PER DR. WEBER, PT IS STABLE FOR TRANSFER. WILL CONTACT TAX RECORD CLERK REGARDING THIS MATTER. PER FACESHEET: [facility] [place]
[2022-03-02 13:23] LABS: BASOPHILS # (AUTO) 0.1 K/uL (0.0-0.2); BASOPHILS % (AUTO) 1.3 % (0.0-2.0); EOSINOPHILS # (AUTO) 0.3 K/uL (0.0-0.4); EOSINOPHILS % (AUTO) 2.7 % (0.0-4.0); HEMATOCRIT 46.6 % (36-54); LYMPHOCYTES # (AUTO) 1.8 K/uL (1.0-5.5); LYMPHOCYTES % (AUTO) 18.5 % (20.5-51.5); MEAN CORPUSCULAR HEMOGLOBIN 29 pg (27-31); MEAN CORPUSCULAR HGB CONC 34 % (32-36); MEAN CORPUSCULAR VOLUME 84 fL (79.0-98.0); MONOCYTES # (AUTO) 0.6 K/uL (0.0-1.0); MONOCYTES % (AUTO) 6.3 % (1.7-9.3); NEUTROPHILS # (AUTO) 6.8 K/uL (1.8-7.7); NEUTROPHILS % (AUTO) 71.2 % (40.0-70.0); PLATELET COUNT (AUTO) 321 K/uL (130-430); RED BLOOD CELL COUNT(AUTO) 5.55 MIL/uL (4.2-6.2); RED CELL DISTRIBUTION WIDTH 13.7 % (9.0-15.0); WHITE BLOOD COUNT (AUTO) 9.5 K/uL (4.8-10.8)
--- NOTE | 2022-03-02 14:44 | NUR ---
FAXED FACESHEET AND CLINICALS TO [employer]. FAX: [phone]
--- NOTE | 2022-03-02 17:01 | NUR ---
Admit bed requested Patient will be admitted to care of . Admitted to TEL unit. Diagnosis: UPPER GI BLEEDING AND R/O ACS Inpatient (Yes) Observation (No) Orientation concerns or request close to nursing station (No) Covid Status NEGATIBE On vent or bipap: NO Isolation requirements STANDARD Needs a sitter: NO From Home (Yes) Requires Dialysis (No) Med Rec Completed: YES
[2022-03-02] MEDS ORDERED: ONDANSETRON HCL 4 MG/2 ML VIAL IVP PRN (17:15)
[2022-03-02] MEDS ORDERED: MORPHINE 2 MG/ML INJ. SYRINGE IVP PRN (17:15)
--- NOTE | 2022-03-02 18:08 | NUR ---
PT GOT ROOM 130. REPORT WAS GIVEN BEDSIDE TO BARRY CELIS.
--- NOTE | 2022-03-02 18:15 | NUR ---
PT ARRIVED TO UNIT VIA STRETCHER. BEDSIDE REPORT RECEIVED. ACCORDING TO REPORT, PT SBP 200'S DBP 100'S UPON ARRIVAL TO THE ED. ASSESSED VS BP 150/110 HR 68 RR 20 TEMP 98.7 O2 SAT 98 ON ROOM AIR. PT C/O BEING IN THE EMERGENCY SINCE THIS MORNING, STATE NOTHING WAS DONE FOR HIM. PT STATED HE WAS NOT SATISFIED WITH CARE RECEIVED. PT C/O OF HEADACHE, DIZZINESS WHEN STANDING AND NAUSEA. PATIENT WAS GOWNED AND PLACED ON TELE MONITOR.
[2022-03-02] MEDS: D5/0.45 NS 1,000 ML IV SCH (19:15)
[2022-03-02 19:58] VITALS: BP_SYST 158
[2022-03-02 20:00] VITALS: BP_SYST 158
[2022-03-02] MEDS: MORPHINE 2 MG/ML INJ. SYRINGE IVP PRN (20:27)
[2022-03-03 00:05] VITALS: BP_SYST 147
--- NOTE | 2022-03-03 02:14 | NUR ---
CONSULTATION PAGED REASON FOR CONSULTATION: r/o ACS WAS CONSULT CALLED? Y PERSON WHO WAS NOTIFIED: Danae CONSULTING PHYSICIAN: Dr. Enriquez REQUESTING PHYSICIAN: Dr. Oleary
--- NOTE | 2022-03-03 03:35 | NUR ---
CONSULTATION PAGED REASON FOR CONSULTATION:Upper GI Bleeding WAS CONSULT CALLED? Y PERSON WHO WAS NOTIFIED: Danae CONSULTING PHYSICIAN: Dr. Robert (Dr. Turner is fractionation supervisor) REQUESTING PHYSICIAN: Dr. Oleary
[2022-03-03] MEDS: D5/0.45 NS 1,000 ML IV SCH ×3 (05:16→22:30)
--- NOTE | 2022-03-03 06:15 | NUR ---
MD RETURN CALL ORDERED ZOFRAN FOR NAUSEA
[2022-03-03 08:00] VITALS: BP_SYST 156
[2022-03-03] MEDS ORDERED: PANTOPRAZOLE SODIUM 40 MG/VIAL (PROTONIX) IVP SCH (09:00)
[2022-03-03] MEDS ORDERED: fentaNYL CITRATE/PF 100 MCG/2 ML AMP ONE (09:16)
[2022-03-03] MEDS ORDERED: MIDAZOLAM HCL 5 MG/5 ML VIAL ONE (09:17)
[2022-03-03] MEDS ORDERED: DIPHENHYDRAMINE INJ 50 MG/ML VIAL ONE (09:32)
[2022-03-03] MEDS ORDERED: CLARITHROMYCIN 500 MG TABLET PO ONE (10:45)
[2022-03-03] MEDS ORDERED: AMOXICILLIN 500 MG CAPSULE PO ONE (10:45)
[2022-03-03] MEDS ORDERED: PANTOPRAZOLE SODIUM 40 MG TAB PO ONE (10:45)
[2022-03-03 12:00] VITALS: BP_SYST 161
[2022-03-03 16:00] VITALS: BP_SYST 151
--- NOTE | 2022-03-03 19:53 | NUR ---
OPENING NOTES PT AOX4, WITH IV IN R AC INFUSING WITH NO COMPLAINTS. PT HAS BRP AND CURRENTLY HAS NO C/O PAIN. PT BP IS ELEVATED PER DAYSHIFT AND CALL WAS PLACED TO MD ON DAY SHIFT. PT ABLE TO VERBALIZE HIS NEEDS WILL CONTINUE TO MONITOR FOR SAFETY
[2022-03-03 20:00] VITALS: BP_SYST 161
--- NOTE | 2022-03-03 20:30 | NUR ---
CALLED DR KING CALLED FOR ORDER R/T HIGH BP
[2022-03-03] MEDS: AMOXICILLIN 500 MG CAPSULE PO SCH (21:59)
[2022-03-03] MEDS: PANTOPRAZOLE SODIUM 40 MG TAB PO SCH (22:00)
[2022-03-03] MEDS: CLARITHROMYCIN 500 MG TABLET PO SCH (22:00)
[2022-03-03] MEDS: hydrALAZINE HCL 20 MG/ML VIAL IVP PRN (22:16)
--- NOTE | 2022-03-03 22:30 | NUR ---
RETURN THE CALL ORDER FOR HYDRALAZINE OBTAINED
[2022-03-04] VITALS: BP_SYST 109; BP_SYST 136
[2022-03-04] MEDS: D5/0.45 NS 1,000 ML IV SCH ×2 (04:30→15:25)
[2022-03-04 06:00] VITALS: BP_SYST 181
--- NOTE | 2022-03-04 06:00 | NUR ---
CALLED PT C/O NAUSEA
--- NOTE | 2022-03-04 06:15 | NUR ---
MD RETURN CALL ORDERED ZOFRAN FOR NAUSEA
--- NOTE | 2022-03-04 06:20 | NUR ---
MEDICATED FOR NAUSEA PT GIVEB ZOFRAN PER ORDERED
--- NOTE | 2022-03-04 06:20 | NUR ---
PT C/O OF PAIN PT GIVEN MORPHINE ORDERED FOR PAIN 11/24
--- NOTE | 2022-03-04 06:35 | NUR ---
PT C/O H/A BP CHECK AND WAS ELEVATED
--- NOTE | 2022-03-04 06:40 | NUR ---
PT C/O H/A PT GIVEN PRN HYDRALAZINE ORDER FOR ELEVATED BP
[2022-03-04] MEDS: hydrALAZINE HCL 20 MG/ML VIAL IVP PRN (06:44)
[2022-03-04] MEDS: ONDANSETRON HCL 4 MG/2 ML VIAL IM PRN ×3 (06:44→22:14)
[2022-03-04] MEDS: MORPHINE 2 MG/ML INJ. SYRINGE IVP PRN (06:45)
[2022-03-04 07:29] LABS: BASOPHILS # (AUTO) 0.1 K/uL (0.0-0.2); BASOPHILS % (AUTO) 1.3 % (0.0-2.0); EOSINOPHILS # (AUTO) 0.1 K/uL (0.0-0.4); EOSINOPHILS % (AUTO) 1.3 % (0.0-4.0); HEMATOCRIT 46.8 % (36-54); HEMOGLOBIN 15.5 g/dL (14.0-18.0); LYMPHOCYTES # (AUTO) 1.4 K/uL (1.0-5.5); LYMPHOCYTES % (AUTO) 16.1 % (20.5-51.5); MEAN CORPUSCULAR HEMOGLOBIN 28 pg (27-31); MEAN CORPUSCULAR HGB CONC 33 % (32-36); MEAN CORPUSCULAR VOLUME 84 fL (79.0-98.0); MONOCYTES # (AUTO) 0.8 K/uL (0.0-1.0); MONOCYTES % (AUTO) 9.4 % (1.7-9.3); NEUTROPHILS # (AUTO) 6.1 K/uL (1.8-7.7); NEUTROPHILS % (AUTO) 71.9 % (40.0-70.0); PLATELET COUNT (AUTO) 314 K/uL (130-430); RED BLOOD CELL COUNT(AUTO) 5.58 MIL/uL (4.2-6.2); RED CELL DISTRIBUTION WIDTH 13.6 % (9.0-15.0); WHITE BLOOD COUNT (AUTO) 8.5 K/uL (4.8-10.8)
--- NOTE | 2022-03-04 07:30 | NUR ---
OPENING NOTE Patient resting in bed with eyes closed, no sign of distress or pain. Patient's breathing is nonlabored and even. IV is patent and running prescribed fluids. All needs met at this time and safety checks made.
[2022-03-04 07:43] LABS: CALCIUM 7.9 mg/dL (8.4-11.0); CREATININE 1.05 mg/dL (0.55-1.30)
[2022-03-04 07:49] LABS: ALBUMIN 3.3 g/dL (3.4-4.8); TOTAL BILIRUBIN 0.5 mg/dL (0.0-1.0)
[2022-03-04 08:00] VITALS: BP_SYST 157
--- NOTE | 2022-03-04 09:05 | NUR ---
ROUNDS Patient back in bed resting aftering being found laying on the floor next to his bed. Patient stated he wanted to rest on the floor and denies having fallen. Patient is agitated and shouting that he wants to leave, updated the patient on his plan of care. Patient refused to verbalize understanding and requesting to go AMA. Comfort measures provided. Waldemar harris MD.
[2022-03-04] MEDS ORDERED: hydrALAZINE HCL 25 MG TABLET PO ONE (09:30)
[2022-03-04] MEDS: CLARITHROMYCIN 500 MG TABLET PO SCH ×2 (10:35→21:32)
[2022-03-04] MEDS: AMOXICILLIN 500 MG CAPSULE PO SCH ×2 (10:35→21:32)
[2022-03-04] MEDS: LISINOPRIL 10 MG TABLET (PRINIVIL) PO SCH (10:36)
[2022-03-04] MEDS: PANTOPRAZOLE SODIUM 40 MG TAB PO SCH ×2 (10:36→21:32)
[2022-03-04] MEDS: LORazepam 2 MG/ML VIAL IM PRN ×2 (10:40→21:48)
[2022-03-04 12:00] VITALS: BP_SYST 163
--- NOTE | 2022-03-04 14:09 | NUR ---
PATIENT MOVED TO ROOM 134A Patient moved rooms, all belongings moved with patient All needs met at this time and safety checks made.
[2022-03-04 15:23] VITALS: BP_SYST 158
[2022-03-04 19:45] VITALS: BP_SYST 158
--- NOTE | 2022-03-04 19:45 | NUR ---
INITIAL NOTE AT INITIAL ASSESSMENT, PATIENT IS RESTING IN BED, STABLE, NO SIGNS OF RESPIRATORY DISTRESS. PATIENT VERBALIZES TOLERABLE PAIN. PLAN OF CARE FOR THE EVENING IS COMMUNICATED WITH PATIENT. CALL LIGHT TEACH BACK IS SUCCESSFUL. PATIENT STATES HE FEELS TOO WEAK TO WALK. BED IS LOCKED, AND AT THE LOWEST LEVEL. URINAL AND URINAL PEDROZA PROVIDED FOR CONVENIENCE. FALL AND SAFETY PRECAUTIONS WILL BE IN PLACE THROUGHOUT THE SHIFT.
--- NOTE | 2022-03-04 20:10 | NUR ---
CLOSING NOTE Patient in bed resting with eyes closed, no sign of distress or pain. Patient's breathing is nonlabored and even. IV site is clean, dry, intact and patent; prescribed fluids are running. Patient periodically complained of nausea throughout the shift but did not have any vomit. Patient was calm and cooperative with his care after receiving PRN ativan. All needs met at this time and safety checks made. Endorsed to administrative assistant front desk nurse.
[2022-03-04] MEDS: hydrALAZINE HCL 25 MG TABLET PO SCH (21:31)
--- NOTE | 2022-03-04 21:50 | NUR ---
ANXIETY NOTE PATIENT VERBALIZES FEELING ANXIOUS, PRN MEDICATION FOR ANXIETY GIVEN AT THIS TIME. WILL MONITOR CLOSELY.
--- NOTE | 2022-03-04 22:15 | NUR ---
NAUSEA NOTE PATIENT VERBALIZES SOME NAUSEA, PRN MEDICATION FOR NAUSEA GIVEN AT THIS TIME. WILL CONTINUE TO MONITOR.
[2022-03-05] VITALS: BP_SYST 150
--- NOTE | 2022-03-05 02:30 | NUR ---
ROUNDS PATIENT IS SLEEPING, STABLE, NO SIGNS OF RESPIRATORY DISTRESS.
[2022-03-05] MEDS: D5/0.45 NS 1,000 ML IV SCH (02:34)
--- NOTE | 2022-03-05 06:24 | NUR ---
CLOSING NOTE PATIENT DID NOT HAVE ANY EPISODES OF VOMITING DURING THE NIGHT, ALTHOUGH HE DID COMPLAIN OF NAUSEA. PATIENT VERBALIZED THAT PRN MEDICATION GIVEN TO HIM FOR HIS ANXIETY AND NAUSEA WERE EFFECTIVE. CALL LIGHT IS WITHIN REACH. BED IS LOCKED, ALARMED, AND AT THE LOWEST LEVEL. FALL, SAFETY, AND ASPIRATION PRECAUTIONS HAVE BEEN IN PLACE THROUGHOUT THE SHIFT. WILL CONTINUE TO MONITOR UNTIL REPORT IS GIVEN AT BEDSIDE TO AM NURSE.
[2022-03-05 08:00] VITALS: BP_SYST 154
[2022-03-05] MEDS: hydrALAZINE HCL 25 MG TABLET PO SCH (09:59)
[2022-03-05] MEDS: AMOXICILLIN 500 MG CAPSULE PO SCH (09:59)
[2022-03-05] MEDS: PANTOPRAZOLE SODIUM 40 MG TAB PO SCH (10:00)
[2022-03-05] MEDS: LISINOPRIL 10 MG TABLET (PRINIVIL) PO SCH (10:00)
[2022-03-05] MEDS: CLARITHROMYCIN 500 MG TABLET PO SCH (10:00)
[2022-03-05 12:00] VITALS: BP_SYST 152
[2022-03-05] MEDS ORDERED: AMOX500C2 PO (15:59)
[2022-03-05] MEDS ORDERED: CLAR250T12 PO (15:59)
[2022-03-05] MEDS ORDERED: PRO40 PO (15:59)
[2022-03-05 16:00] VITALS: BP_SYST 153
[2022-03-05 17:06] VITALS: BP_SYST 152
--- NOTE | 2022-03-05 19:30 | NUR ---
Patient had no complaint's of pain nausea or vomiting episodes all day. Continued on IV fluid's with po antibiotic therapy. On two oral antibiotic's. Complaint of no one coming to see him requesting plan of action. Following Regular diet with out problem's stated he had normal BM today. Requesting to go AMA. 's VICE PRESIDENT [employer] came late afternoon informed of situation. Decision made that patient was able to be discharged with follow up visit with GI doctor. Discharge teaching completed high lighting importance of follow up with both primary and specialist. Doctor number's high lighted instructed to call for appointment's and to go to his pharmacy to pickling grader his new medication's and continue home medication's. Especially instructed in importance of taking and finishing all antibiotic's. Finished dinner IV removed patient discharged and was picked up by family at around 18:45 prior to bean picker machine operator.
== END 2022-03-05 18:45 | disposition home or self-care (01) | DRG 241 ==
LOC: SED 08:36 → STU 17:04 → SMU 03-03 22:25
PROVIDERS: ADMIT Internal Medicine; ATTEND Internal Medicine
PROC: 0DB68ZX Excision of Stomach, Via Natural or Artificial Opening Endoscopic, Diagnostic (ICD-10-PCS; principal; 2022-03-03 10:00)
DX: K29.71 Gastritis, unspecified, with bleeding (principal); B19.20 Unspecified viral hepatitis C without hepatic coma; K29.81 Duodenitis with bleeding; B96.81 Helicobacter pylori [H. pylori] as the cause of diseases classified elsewhere; K21.9 Gastro-esophageal reflux disease without esophagitis; N40.0 Benign prostatic hyperplasia without lower urinary tract symptoms; I10 Essential (primary) hypertension; K44.9 Diaphragmatic hernia without obstruction or gangrene; Z20.822 Contact with and (suspected) exposure to COVID-19; Z79.82 Long term (current) use of aspirin; Z79.899 Other long term (current) drug therapy; Z87.19 Personal history of other diseases of the digestive system; Z87.891 Personal history of nicotine dependence; Z87.11 Personal history of peptic ulcer disease
CPT/HCPCS: 36415; 43239; 70450-TC; 71045; 76376; 80048; 80053; 83690; 83880; 84484; 85025; 87081; 88305; 88312; 88313; 93005; 96365; 96375; 99291; C9113; G0378; J0360; J1200; J2060; J2250; J2270; J2405; J3010; J7030; Q9967

== ENCOUNTER 2023-01-19 05:44 | Emergency (ER) | payer MEDICAID ==
[~2023-01-19] VITALS: Ht 167.6 cm; Wt 75.3 kg
[~2023-01-19 05:44] MED LIST changes: +AMOX500C2 PO; +CLAR-61 PO; +ENAL-77 PO; -ENAL10TA19 PO; +IBUP-1969 PO; -SULF1TAB3 PO
[2023-01-19 05:56] VITALS: BP_SYST 168; PULSE 96; RESP 20; TEMP 97.9; O2SAT 97
[2023-01-19 06:23] LABS: BASOPHILS % (AUTO) 0.1 % (0.0-2.0); EOSINOPHILS # (AUTO) 0.3 K/uL (0.0-0.4); EOSINOPHILS % (AUTO) 4.3 % (0.0-4.0); HEMATOCRIT 46.9 % (36-54); HEMOGLOBIN 15.2 g/dL (14.0-18.0); LYMPHOCYTES % (AUTO) 24.9 % (20.5-51.5); MEAN CORPUSCULAR HEMOGLOBIN 27 pg (27-31); MEAN CORPUSCULAR HGB CONC 32 % (32-36); MEAN CORPUSCULAR VOLUME 85 fL (79.0-98.0); MONOCYTES # (AUTO) 0.8 K/uL (0.0-1.0); MONOCYTES % (AUTO) 9.6 % (1.7-9.3); NEUTROPHILS # (AUTO) 4.9 K/uL (1.8-7.7); NEUTROPHILS % (AUTO) 61.1 % (40.0-70.0); PLATELET COUNT (AUTO) 356 K/uL (130-430); RED BLOOD CELL COUNT(AUTO) 5.55 MIL/uL (4.2-6.2); RED CELL DISTRIBUTION WIDTH 13.5 % (9.0-15.0)
[2023-01-19 06:42] LABS: CALCIUM 7.8 mg/dL (8.4-11.0); CREATININE 1.16 mg/dL (0.55-1.30); POTASSIUM 3.6 mmol/L (3.5-5.1)
[2023-01-19 06:46] LABS: ALBUMIN 3.3 g/dL (3.4-4.8); TOTAL BILIRUBIN 0.4 mg/dL (0.0-1.0); TOTAL PROTEIN, SERUM 7.1 g/dL (6.4-8.3)
[2023-01-19 07:07] LABS: BILIRUBIN,URINE NEGATIVE (NEGATIVE); BLOOD, URINE NEGATIVE (NEGATIVE); CLARITY/URINE CLEAR (CLEAR); COLOR,URINE YELLOW (YELLOW); GLUCOSE,URINE NEGATIVE (NEGATIVE); KETONES,URINE NEGATIVE (NEGATIVE); LEUKOCYTE ESTERASE ,URINE NEGATIVE (NEGATIVE); NITRITE, URINE NEGATIVE (NEGATIVE); PROTEIN URINE NEGATIVE (NEGATIVE); UROBILINOGEN,URINE 0.2 (0.2-1.0)
[2023-01-19] MEDS ORDERED: CARVEDILOL 6.25 MG TABLET (COREG) PO ONE (07:30)
[2023-01-19 07:59] LABS: BARBITURATE, URINE NEGATIVE (NEG <=200); URINE AMPHETAMINE POSITIVE (NEG <=500)
[2023-01-19 08:00] LABS: BENZODIAZEPINE, URINE NEGATIVE (NEG <=150); CANNABINOID, URINE NEGATIVE (NEG <=50); COCAINE, URINE NEGATIVE (NEG <=150); METHAMPHETAMINES SCREEN,URINE POSITIVE (NEG <=500); OPIATE, URINE NEGATIVE (NEG <=100); PHENCYCLIDINE SCREEN,URINE NEGATIVE (NEG <=25); URINE METHADONE NEGATIVE (NEG <=200); URINE OXYCODONE SCREEN NEGATIVE (NEG <=100); URINE PROPOXYPHENE SCREEN NEGATIVE (NEG <=300)
[2023-01-19 08:02] LABS: UR TRICYCLIC ANTIDEPRESSANTS NEGATIVE (NEG <=300)
[2023-01-19] MEDS ORDERED: OMEP40CA20 PO (08:13)
[2023-01-19 08:20] VITALS: BP_SYST 180; PULSE 67; RESP 16; TEMP 97.9; O2SAT 95
== END 2023-01-19 08:20 | disposition home or self-care (01) ==
LOC: SED 05:44
DX: R10.11 Right upper quadrant pain (principal); F19.10 Other psychoactive substance abuse, uncomplicated; K21.9 Gastro-esophageal reflux disease without esophagitis; I10 Essential (primary) hypertension; Z79.899 Other long term (current) drug therapy
CPT/HCPCS: 36415; 80053; 80307; 81003; 83690; 85025; 99283

== ENCOUNTER 2023-10-27 07:48 | Emergency (ER) | payer MEDICAID ==
[~2023-10-27] VITALS: Ht 170.2 cm; Wt 77.1 kg
[~2023-10-27 07:48] MED LIST changes: +OMEP40CA20 PO
[2023-10-27 08:25] VITALS: BP_SYST 186; PULSE 75; RESP 15; TEMP 97; O2SAT 97
[2023-10-27] MEDS ORDERED: CEPH250C PO (08:34)
[2023-10-27 08:44] VITALS: BP_SYST 170; PULSE 71; RESP 18; TEMP 97; O2SAT 99
== END 2023-10-27 08:38 | disposition home or self-care (01) ==
LOC: SED 07:48
DX: Z18.33 Retained wood fragments (principal); I25.2 Old myocardial infarction; K21.9 Gastro-esophageal reflux disease without esophagitis; I10 Essential (primary) hypertension; Z88.8 Allergy status to other drugs, medicaments and biological substances; Z79.899 Other long term (current) drug therapy; Z79.2 Long term (current) use of antibiotics
CPT/HCPCS: 99283

== ENCOUNTER 2023-10-27 22:23 | Emergency (ER) | payer MEDICAID ==
[~2023-10-27] VITALS: Ht 167.6 cm; Wt 77.1 kg
[~2023-10-27 22:23] MED LIST changes: +CEPH250C PO
[2023-10-27 22:48] VITALS: BP_SYST 145; PULSE 89; RESP 18; TEMP 98.3; O2SAT 98
[2023-10-27 23:40] VITALS: BP_SYST 163
[2023-10-28] MEDS: ACETAMINOPHEN 500 MG TABLET PO ONE (01:16)
[2023-10-28] MEDS: KETOROLAC TROMETHAMINE 30 MG VIAL IM ONE (01:17)
[2023-10-28] MEDS: hydrALAZINE HCL 20 MG/ML VIAL IM ONE (01:39)
[2023-10-28 02:32] VITALS: PULSE 88; RESP 26; TEMP 98; O2SAT 97
== END 2023-10-28 02:33 | disposition home or self-care (01) ==
LOC: SED 22:23
DX: S60.450A Superficial foreign body of right index finger, initial encounter (principal); L08.89 Other specified local infections of the skin and subcutaneous tissue; I10 Essential (primary) hypertension; I25.2 Old myocardial infarction; K21.9 Gastro-esophageal reflux disease without esophagitis; Z88.6 Allergy status to analgesic agent; Z88.2 Allergy status to sulfonamides; Z88.8 Allergy status to other drugs, medicaments and biological substances; Z79.899 Other long term (current) drug therapy; Z79.2 Long term (current) use of antibiotics; X58.XXXA Exposure to other specified factors, initial encounter; Y93.89 Activity, other specified; Y92.89 Other specified places as the place of occurrence of the external cause; Y99.8 Other external cause status
CPT/HCPCS: 99284; 10060; 96372; J0360; J1885